=== PATIENT | female | born 1955 | race Hispanic/Latino ===

== ENCOUNTER → 2024-03-05 | Outpatient (CLI) | payer MEDICARE ==
--- NOTE | 2024-03-05 18:40 | HMCSR ---
APPROVED REPORT Laterality: Bilateral Indications i77.9 Doppler Spectral Velocity Analysis PSV / EDVPSV / EDV ECA (R) 232 / cm/sECA (L) 601 / cm/s dICA (R) 126 / 28 cm/sdICA (L) 92 / 23 cm/s Mikel (R) 191 / 37 cm/smICA (L) 106 / 16 cm/s pICA (R) 223 / 39 cm/spICA (L) 205 / 30 cm/s dCCA (R) 55 / 11 cm/sdCCA (L) 45 / 12 cm/s mCCA (R) 69 / 15 cm/smCCA (L) 52 / 14 cm/s pCCA (R) 56 / 9 cm/spCCA (L) 45 / 9 cm/s Vert (R) 53 / cm/sVert (L) 62 / cm/s Subl. (R) 134 / cm/sSubl. (L) 228 / cm/s ICA/CCA 3.23ICA/CCA 3.94 Technologist Impression Mild to moderate plaque noted in the bilateral carotids. Right and Left ICA show evidence of 50-69% stenosis. Increased velocities in the RECA and significant velocities in the LECA. Bilateral vertebral arteries appear antegrade. Conclusion Mild to moderate plaque noted in the bilateral carotids. Right and Left ICA show evidence of 50-69% stenosis. Increased velocities in the RECA and significant velocities in the LECA. Bilateral vertebral arteries appear antegrade. Conclusion Mild to moderate plaque noted in the bilateral carotids. Right and Left ICA show evidence of 50-69% stenosis. Increased velocities in the RECA and significant velocities in the LECA. Bilateral vertebral arteries appear antegrade.
== END | disposition home or self-care (01) ==
LOC: SHCH 10:14
PROVIDERS: ATTEND Internal Medicine
DX: I65.23 Occlusion and stenosis of bilateral carotid arteries (principal); I77.9 Disorder of arteries and arterioles, unspecified
CPT/HCPCS: 93880